=== PATIENT | male | born 1985 | race Caucasian/White ===

== ENCOUNTER 2017-01-01 20:37 | Inpatient (IN) | payer SELFPAY ==
[~2017-01-01 20:37] MED LIST: [UNRECOGNIZED DRUG - OTHER] IV ONE
[2017-01-01] MEDS ORDERED: [UNRECOGNIZED DRUG - OTHER] ONE (20:46)
[2017-01-01] MEDS ORDERED: NS 250 ML IV 250 ML IV ONE (20:47)
[2017-01-01] MEDS ORDERED: NS 1000 ML 1,000 ML ONE (20:51)
[2017-01-01] MEDS ORDERED: DILAUDID INJ ONE ×2 (20:54→21:02)
[2017-01-01] MEDS ORDERED: ADACEL TDaP IM ONE (21:06)
[2017-01-01] MEDS ORDERED: DILAUDID INJ IVP ONE ×2 (21:08→21:17)
[2017-01-01] MEDS ORDERED: [UNRECOGNIZED DRUG - OTHER] IV ONE ×2 (21:10→22:00)
[2017-01-01] MEDS ORDERED: MORPHINE SULFATE INJ 2 MG ONE (21:11)
[2017-01-01] MEDS ORDERED: MORPHINE SULFATE INJ 2 MG IVP ONE (21:17)
[2017-01-01] MEDS ORDERED: NS 1000 ML 1,000 ML IV ONE (21:19)
--- NOTE | 2017-01-01 21:22 | DR.GENAD ---
HPI - PCP Primary Care Physician: NLD - Complaint/Symptoms Chief Complaint Doctors Comments: Patient states he was bitten by a snake when he was walking around his house around his shed he felt the bite and saw something brown moving fast. He has pain in his right foot and 5th toe with swelling and bruising noted. states the pain is severe 10 of 10. He has a dry mouth with a funny taste in his mouth. He denies SOB, chest pain , nausea or vomiting. He has been shaking because the pain hurts so badily. Chief Complaint:: Patient stated that he got bit by a rattlesnake approx. 30 minutes prior to arrival in ER. - Nurses notes reviewed Nurses Notes Review: Yes - Source History Provided: Patient - Mode of Arrival Mode of Arrival: Ambulatory - Timing Onset of Chief Complaint: 01/01/17 Came on: Suddenly - Duration Duration: Constant How lon Duration: Minutes - Location Location: right foot and little toe - Severity Severity: Severe - Modifying Factors Worsens:: movement Improves:: nothing PMH - PMH Past Medical History: Yes Past Medical History Comment: Alcoholism, Drug Addiction Past Surgical History: Yes Surgical History: Ortho Surgery Past Surgical History Comment: Reconstruction surgery on left knee - Family History History of Family Medical Conditions: Yes Family Medical History: Diabetes Mellitus, Coronary Artery Disease, Hypertension - Social History Alcohol Use: Heavy, DAILY Do you use any recreational Drugs:: Yes ([facility]) Lives With: Family Lives Where: Home - infectious screening In the last 2 months have you had wt loss of >10#?: NO Have you had fever, night sweats or hemotysis?: No Have you traveled outside the country in the last 6 months?: No Isolation: Standard ROS - Review of Systems Constitutional: No Symptoms Reported. negative: See HPI, Chills, Diaphoresis, Fever, Malaise, Weakness, Irritable, Fatigue, Loss of Appetite, Other Eyes: No Symptoms Reported. negative: See HPI, Eye Pain, Blurred Vision, Tearing, Discharge, Photophobia, Diplopia, Other ENTM: No Symptoms Reported. negative: See HPI, Ear Pain, Ear Discharge, Pulling on Ears, Hearing Loss, Nose Pain, Nose Discharge, Epistaxis, Nose Congestion, Mouth Pain, Mouth Swelling, Loose Teeth, Drooling, Throat Pain, Throat Swelling, Ear Foreign Body Respiratoy: No Symptoms Reported. negative: See HPI, Productive Cough, Non- Productive Cough, Moist Cough, Dry Cough, Hacking Cough, Barking Cough, Brassy Cough, Orthopnea, Short of Breath, Stridor, Wheezing, Hemoptysis, Other Cardiovascular: No Symptoms Reported. negative: See HPI, Chest Pain, Edema, Palpitations, Syncope, Cyanosis, Skin Mottling, Other Gastrointestinal/Abdominal: No Symptoms Reported. negative: See HPI, Abdominal Pain, Constipation, Diarrhea, Nausea, Vomiting, Food Intolerance, Other Genitourinary: No Symptoms Reported. negative: See HPI, Discharge, Dysuria, Frequency, Hematuria, Pain, Bleeding, Other Neurological: No Symptoms Reported, Paresthesia (right foot), Problems Walking ( right foot pain) Musculoskeletal: No Symptoms Reported, Right (right foot swelling dorsal foot and 5th toe with ecchymosis), Foot Integumentary: Change in Color, Wound (right foot with puncture wound 5th toe), Bruises Hematologic/Lymphatic: No Symptoms Reported. negative: See HPI, Anemia, Blood Clots, Easy Bleeding, Easy Bruising, Swollen Glands, Lymphadenopathy, Other Endocrine: No Symptoms Reported. negative: See HPI, Excessive Sweating, Flushing, Intolerance to Cold, Intolerance to Heat, Increased Hunger, Increased Thirst, Increased Urine, Unexplained Weight Gain, Unexplained Weight Loss, Failure to Thrive, Decreased Appetite, Other Psychiatric: No Symptoms Reported PE - Vital Signs Vitals: Pulse Rate 101 Respiratory Rate 24 Blood Pressure 135/80 O2 Sat by Pulse Oximetry 100 - General Limitations: No Limitations General Appearance: Alert, In Distress (moderate distress) - Head Head Exam: Normal Inspection, Atraumatic, Normocephalic - Eyes Eye exam: Normal Appearance, PERRL, EOMI. negative: Scleral Icterus, Conjunctival Injection, Nystagmus, Miosis, Mydrasis, Periorbital Swelling, Periorbital Tenderness, Other - ENT ENT Exam: Normal Exam, Normal Oropharynx, Normal External Ear Exam, Mucous Membranes Moist, TM's Normal Bilaterally External Ear Exam: Normal External Inspection TM/Canal Exam: Bilateral Normal Nose Exam: Normal Nose Exam Mouth Exam: Normal Inspection. negative: Drooling, Trismus, Lip Swelling, Tongue Elevation, Tongue Swelling, Laceration, Other Throat Exam: Normal Inspection. negative: Tonsillar Erythema, Tonsillomegaly, Tonsillar Exudate, R Peritonsillar Mass, L Peritonsillar Mass, Muffled Voice, Other - Neck Neck Exam: Normal Inspection, Full ROM, Trachea Midline. negative: Tenderness, Meningismus, Lymphadenopathy, Thyromegaly, Other - Chest Chest Inspection: Normal Inspection. negative: Symmetric Chest Wall Rise, Tenderness, Rash, Abscess, Other - Respiratory Respiratory Exam: Normal Lung Sounds Bilat. negative: Accessory Muscle Use, Chest Wall Tenderness, Prolonged Expiratory Phase, Respiratory Distress, Stridor , Other Respiratory Exam: Bilateral Clear to Auscultation - Cardiovascular Cardiovascular Exam: Regular Rate, Normal Rhythm, Normal Heart Sounds. negative : Bradycardia, Tachycardia, Irregular Rhythm, Systolic Murmur, Diastolic Murmur , Rubs, Gallop, Clicks, JVD, +S1, +S2, +S3, +S4, Other - Abdominal Exam Abdominal Exam: Normal Inspection, Normal Bowel Sounds, Soft. 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 negative: Tenderness, (R) CVA Tenderness, (L) CVA Tenderness, Muscle Spasm, Paraspinal Tenderness, Vertebral Tenderness, Rashes, (R) Sciatic Notch Tenderness, (L) Sciatic Notch Tendern, (R ) Straight Leg Raise, (L) Straight Leg Raise, Other - Neurologic Neurological Exam: Alert, Oriented X3, CN II-XII Intact, Reflexes Normal. negative: Normal Gait (gait not tested) - Psychiatric Psychiatric Exam: Normal Affect, Normal Mood, Anxious. negative: Depressed, Agitated, Flat Affect, Manic, Homicidal Ideation, Suicidal Ideation, Other - Skin Skin Exam: Warm, Dry, Intact, Normal Color (right foot with ecchymosis, swelling ). negative: Rash, Cyanosis, Diaphoresis, Erythema, Pallor, Mottled, Other Course - Reevaluation 1st: Improved - Consultation Called: 22:16 Call Returned: 22:16 (Dr. Ramirez to admit) - Education/Counseling Education/Counseling: Patient, Family Educated On: Treatment, Diagnosis, Prognosis, Needs for Follow Up ROR - Labs Reviewed Laboratory Results Reviewed?: Yes (all labs and x-ray results reviewed and discussed with patient) Result Diagrams: 01/01/17 21:00 Laboratory: WBC 17.9 X10^3/uL (3.6-10.0) H 01/01/17 21:00 RBC 4.78 X10^6/uL (4.7-6.0) 01/01/17 21:00 Hgb 15.1 g/dL (13.5-18.0) 01/01/17 21:00 Hct 43.2 % (42.0-54.0) 01/01/17 21:00 MCV 90.3 fL (80.0-100.0) 01/01/17 21:00 MCH 31.5 pg (27.0-34.0) 01/01/17 21:00 MCHC 34.9 g/dL (33.0-35.0) 01/01/17 21:00 RDW 13.0 % (11.6-16.5) 01/01/17 21:00 Plt Count 259 X10^3/uL (150.0-450.0) 01/01/17 21:00 MPV 9.8 fL (7.4-11.0) 01/01/17 21:00 Neut % 49.6 % (42.0-75.0) 01/01/17 21:00 Lymph % 39.0 % (21.0-51.0) 01/01/17 21:00 Stone % 7.7 % (0.0-13.0) 01/01/17 21:00 Eos % 2.8 % (0.9-2.9) 01/01/17 21:00 Baso % 0.9 % (0.2-1.0) 01/01/17 21:00 Neut # 8.9 x10^3/uL (2.2-4.8) H 01/01/17 21:00 Lymph # 7.0 X10^3/uL (1.3-2.9) H 01/01/17 21:00 [place] # 1.4 x10^3/uL (0.3-0.8) H 01/01/17 21:00 Eos # 0.5 x10^3/uL (0.0-0.2) H 01/01/17 21:00 Baso # 0.2 X10^3/uL (0.0-0.1) H 01/01/17 21:00 Absolute Nucleated RBC 0.0 /100WBC 01/01/17 21:00 INR Target Range - 01/01/17 21:00 INR 1.05 (0.8-1.3) 01/01/17 21:00 Fibrinogen 223 mg/dL (239-489) L 01/01/17 21:00 - Diagnosis Discharge Problem: Puncture wound of right foot Bite, snake, venomous Qualifiers: Encounter type: initial encounter Injury intent: accidental or unintentional Qualified Code(s): T63.001A - Toxic effect of unspecified snake venom, accidental (unintentional), initial encounter - Discharge Plan Disposition: ADMITTED INPATIENT Condition: Stable - Follow ups/Referrals Follow ups/Referrals: NFD,None [Primary Care Provider] - 3 days - Instructions
[2017-01-01] MEDS ORDERED: ATIVAN INJ 2 MG VIAL ONE (21:27)
[2017-01-01] MEDS ORDERED: ATIVAN INJ 2 MG VIAL IVP ONE (21:27)
[2017-01-01 21:35] LABS: BASOPHILS # (AUTO) 0.2 X10^3/uL (0.0-0.1); BASOPHILS % (AUTO) 0.9 % (0.2-1.0); EOSINOPHILS # (AUTO) 0.5 x10^3/uL (0.0-0.2); EOSINOPHILS % (AUTO) 2.8 % (0.9-2.9); HEMATOCRIT 43.2 % (42.0-54.0); HEMOGLOBIN 15.1 g/dL (13.5-18.0); MEAN CORPUSCULAR HEMOGLOBIN 31.5 pg (27.0-34.0); MEAN CORPUSCULAR HGB CONC 34.9 g/dL (33.0-35.0); MEAN CORPUSCULAR VOLUME 90.3 fL (80.0-100.0); MEAN PLATELET VOLUME 9.8 fL (7.4-11.0); MONOCYTES # (AUTO) 1.4 x10^3/uL (0.3-0.8); MONOCYTES % (AUTO) 7.7 % (0.0-13.0); NEUTROPHILS # (AUTO) 8.9 x10^3/uL (2.2-4.8); NEUTROPHILS % (AUTO) 49.6 % (42.0-75.0); PLATELET COUNT 259 X10^3/uL (150.0-450.0); RED BLOOD COUNT 4.78 X10^6/uL (4.7-6.0); WHITE BLOOD COUNT 17.9 X10^3/uL (3.6-10.0)
[2017-01-01 22:26] LABS: BLOOD UREA NITROGEN 7 mg/dL (7-18); CALCIUM 9.5 mg/dL (8.5-10.1); CARBON DIOXIDE 22.5 mmol/L (21-32); CHLORIDE 104 mmol/L (98-107); COR NA(FOR HYPERGLY) 141 mmol/L (136-145); CREATININE 1.09 mg/dL (0.70-1.30); GLUCOSE 117 mg/dL (65-99); SODIUM 141 mmol/L (136-145); eGFR BLACK RACES > 60 (>60); eGFR NON BLACK RACES > 60 (>60)
[2017-01-01] MEDS ORDERED: ZOFRAN INJ 4 MG VIAL IVP PRN (22:27)
[2017-01-01 22:35] LABS: ALANINE AMINOTRANSFERASE 30 Units/L (12-78); ALBUMIN 4.2 g/dL (3.4-5.0); ALKALINE PHOSPHATASE 72 Units/L (46-116); ASPARTATE AMINO TRANSFERASE 21 Units/L (15-37); CKMB % 0.6 % (<4); CREATINE KINASE 168 Units/L (39-308); TOTAL PROTEIN 7.7 g/dL (6.4-8.2); TROPONIN I < 0.02 ng/mL (0-1.5)
[2017-01-01 22:52] LABS: D DIMER < 100 ng/mL (0-400)
[2017-01-01] MEDS: MORPHINE SULFATE INJ 2 MG IVP PRN (23:09)
[2017-01-01] MEDS ORDERED: ATIVAN INJ 2 MG VIAL IVP STA (23:29)
[2017-01-01 23:56] VITALS: BMI 25.7
[2017-01-02 01:36] LABS: BASOPHILS # (AUTO) 0.1 X10^3/uL (0.0-0.1); BASOPHILS % (AUTO) 0.4 % (0.2-1.0); EOSINOPHILS # (AUTO) 0.1 x10^3/uL (0.0-0.2); EOSINOPHILS % (AUTO) 0.3 % (0.9-2.9); HEMATOCRIT 38.5 % (42.0-54.0); HEMOGLOBIN 13.3 g/dL (13.5-18.0); LYMPHOCYTES # (AUTO) 2.9 X10^3/uL (1.3-2.9); LYMPHOCYTES % (AUTO) 15.7 % (21.0-51.0); MEAN CORPUSCULAR HEMOGLOBIN 31.3 pg (27.0-34.0); MEAN CORPUSCULAR HGB CONC 34.7 g/dL (33.0-35.0); MEAN CORPUSCULAR VOLUME 90.4 fL (80.0-100.0); MEAN PLATELET VOLUME 9.5 fL (7.4-11.0); MONOCYTES # (AUTO) 1.3 x10^3/uL (0.3-0.8); NEUTROPHILS % (AUTO) 76.6 % (42.0-75.0); PLATELET COUNT 195 X10^3/uL (150.0-450.0); RED BLOOD COUNT 4.26 X10^6/uL (4.7-6.0); RED CELL DISTRIBUTION WIDTH 12.9 % (11.6-16.5); WHITE BLOOD COUNT 18.3 X10^3/uL (3.6-10.0)
[2017-01-02 03:41] LABS: BILIRUBIN,URINE NEGATIVE (NEGATIVE); BLOOD/HEMOGLOBIN,URINE 1+ (NEGATIVE); GLUCOSE, URINE 1+ (NEGATIVE); KETONES,URINE NEGATIVE (NEGATIVE); LEUKOCYTE ESTERASE ,URINE NEGATIVE (NEGATIVE); NITRITES,URINE NEGATIVE (NEGATIVE); PROTEIN,URINE 2+ (NEGATIVE); UROBILINOGEN,URINE NORMAL (NORMAL)
[2017-01-02] MEDS: MORPHINE SULFATE INJ 2 MG IVP PRN ×4 (03:43→20:09)
[2017-01-02 03:51] LABS: APPEARANCE,URINE CLEAR (CLEAR); BACTERIA,URINE TRACE /HPF (NEGATIVE); COLOR,URINE YELLOW (YELLOW); RBC,URINE 0-3 /HPF (NEGATIVE); SQUAMOUS EPITHELIAL CELL,UR RARE /HPF (NEGATIVE)
[2017-01-02] MEDS ORDERED: [UNRECOGNIZED DRUG - OTHER] IV ONE (04:00)
[2017-01-02] MEDS ORDERED: NS 1000 ML 1,000 ML ONE (05:09)
[2017-01-02] MEDS: ZOSYN VIAL 4.5 GM 4.5 GM in NS 100 ML IV + SPIKE MINIBAG* 100 ML IV SCH ×3 (11:46→22:15)
[2017-01-02] MEDS: NICODERM PATCH 21 MG/24 HR TD SCH (11:58)
--- NOTE | 2017-01-02 12:46 | DR.H&P ---
H&P - History & Physical for Day of: H&P Date: 01/01/17 - Chief Complaint Chief Complaint: SNAKE BITE - Allergies Allergies/Adverse Reactions: Allergies Allergy/AdvReac Type Severity Reaction Status Date / Time No Known Drug Allergies Allergy Verified 01/01/17 21:59 - History of Present Illness History of Present Illness: IS A 31 YEAR OLD PATIENT WHO PRESENTED TO THE ER WITH COMPLAINTS OF BEING BITTEN BY A SNAKE UNDER HIS SHED APPROXIMATELY 30 MINUTES PRIOR TO ARRIVAL. PATIENT WAS UNABLE TO KILL SNAKE BUT STATED THAT IT WAS BROWN IN COLOR. HE HAD COMPLAINTS OF PAIN TO HIS RIGHT FOOT AND 5TH TOE. COMPLAINTS OF DRY MOUTH WERE ALSO NOTED. PATIENT DENIED ANY SOB, CHEST PAIN, OR NAUSEA. ON EXAMINATION IN ER, BRUISING AND SWELLING WAS NOTED TO RIGHT FOOT. VITALS UPON ARRIVAL TO ER WERE 98.2, 101, 24, 100%, 135/80. POISON CONTROL WAS CONTACTED FOR FURTHER INSTRUCTIONS. LABS WERE WITHIN NORMAL LIMITS WITH EXCEPTION OF WBC 179, FIBRINOGEN 223, GLUCOSE 117. PATIENT WAS GIVEN A BOLUS OF FLUIDS IN ER, MORPHINE AND DILAUDID FOR PAIN, AND ATIVAN FOR ANXIETY. HE WAS GIVEN 2 VIALS OF CROFAB IN ER. WE ADMITTED PATIENT FOR FURTHER EVALUATION AND TREATMENT. WE STARTED ZOSYN AND WILL MANAGE PAIN WITH MORPHINE. WE WILL CONTINUE TO MONITOR SWELLING AND FOLLOW UP WITH PATIENT IN AM. - Past Medical History Past Medical History: denies: Alzheimers, Anemia, Angina, Anxiety, Arthritis, Asthma, Cirrhosis, CHF, COPD, Coronary Artery Disease, CVA, Dementia, Depression , Diabetes, Dialysis, Migraines, Dyslipidemia, GERD, Gout, Headaches, Hypertension, Hyperthyroidism, Hypothyroidism, Kidney Stones, Liver Disease, DC , PUD, Renal Disease, Schizophrenia, Seizures, Sleep Apnea, SVT, Ventricular Tachycardia - Past Surgical History Surgical History: Ortho Surgery Additional Surgical History: LEFT KNEE RECONSTRUCTION - Family History Family Medical History: Diabetes Mellitus, Coronary Artery Disease, Hypertension - Social History Does patient currently use any type of tobacco product: Yes Have you used tobacco products in the last 12 months: Yes Type of Tobacco Use: Cigarettes Alcohol Use: DAILY Drug Use: None - Medications Home Medications: NK 01/01/17 [History Confirmed 01/01/17] - Review of Systems Constitutional: denies: No Symptoms Reported, See HPI, Fever, Chills, Sweats, Weakness, Malaise, Other Eyes: denies: No Symptoms Reported, See HPI, Pain, Vision Change, Conjunctivae Inflammation, Eyelid Inflammation, Redness, Other ENT: denies: No Symptoms Reported, See HPI, Ear Pain, Ear Discharge, Nose Pain, Nose Discharge, Nose Congestion, Mouth Pain, Mouth Swelling, Throat Pain, Throat Swelling, Other Respiratory: denies: No Symptoms Reported, See HPI, Cough, Dry, Shortness of Breath, Hemoptysis, SOB with Excertion, Pleuritic Pain, Sputum, Wheezing, Other Cardiovascular: denies: No Symptoms Reported, Chest Pain, See HPI, Palpitations , Orthopnea, Paroxysmal Noc. Dyspnea, Edema, Light Headedness, Other Gastrointestinal: denies: No Symptoms Reported, See HPI, Nausea, Vomiting, Abdominal Pain, Diarrhea, Constipation, Melena, Hematochezia, Other Genitourinary: denies: No Symptoms Reported, See HPI, Dysuria, Frequency, Incontinence, Hematuria, Retention, Other Musculoskeletal: See HPI, Foot Pain Skin: See HPI, Wound Neurological: No Symptoms Reported. denies: See HPI, Weakness, Numbness, Incoordination, Change in Speech, Confusion, Seizures, Other - Physical Exam Vital Signs: Temperature 98.2 F Pulse Rate [Apical] 80 Pulse Rate [Apical] 77 Respiratory Rate 23 Blood Pressure [Left Arm] 134/70 Blood Pressure [Right Arm] 135/72 O2 Sat by Pulse Oximetry 96 Oriented: Normal Eyes: Normal Ear: Normal Nose: Normal Throat: Normal Cardiovascular: Normal : Normal Auscultation: Bowel Sounds: Normal Palpation: Normal Tenderness: Normal Skin: Wound Musculoskeletal: Right, Foot, Swelling, Tender, Instability Psychiatric: Normal Mood Description: Calm Affect: Normal Speech Pattern: Clear - Assessment/Plan (1) Bite, snake, venomous Qualifiers: Encounter type: initial encounter Injury intent: accidental or unintentional Qualified Code(s): T63.001A - Toxic effect of unspecified snake venom, accidental (unintentional), initial encounter Status: Acute Plan: CROFAB, CHECK LABS, OUTLINE SWELLING, CONTINUE TO MONITOR (2) Puncture wound of right foot Qualifiers: Encounter type: E Status: Acute Plan: ZOSYN, CONTINUE TO MONITOR
--- NOTE | 2017-01-02 12:55 | PCM.PROG ---
Progress Note - Progress Note for Day of Date: 01/02/17 - Subjective Subjective: WAS ADMITTED TO US LAST NIGHT FROM THE ER WITH A SNAKE BITE AND PUNCTURE WOUND TO RIGHT FOOT. ON MORNING ROUNDS, PATIENT IS AWAKE IN BED WITH RIGHT FOOT ELEVATED ON PILLOWS. NO COMPLAINTS VOICED AT THIS TIME. ON EXAMINATION, LUNGS CTA. PATIENT ALERT AND ORIENTED. RIGHT FOOT ELEVATED ON PILLOWS WITH BRUISING AND SWELLING NOTED. PATIENT HAS GOOD RANGE OF MOTION TO FOOT. CAPILLARY REFILL WNL. VITALS THIS AM ARE 98.3, 77, 23, 96, 135/72. LABS REPORT WBC 18.3, HGB 13.3, HCT 38.5. WE WILL CONTINUE TO MONITOR SWELLING AND WILL CONTINUE ZOSYN. RECHECK LABS AND FOLLOW UP WITH PATIENT IN AM. - Past Medical Family Social History Past Med/Fam/Surg Hx: No changes since H&P Allergies: Allergies No Known Drug Allergies Allergy (Verified 01/01/17 21:59) - Review of Systems ROS: No change since H&P - Vital Signs and I&O's Vital Signs: Temperature 98.2 F Pulse Rate [Apical] 80 Pulse Rate [Apical] 77 Respiratory Rate 23 Blood Pressure [Left Arm] 134/70 Blood Pressure [Right Arm] 135/72 O2 Sat by Pulse Oximetry 96 Intake and Output: Intake & Output 12/31/16 01/01/17 01/02/17 01/03/17 11:59 11:59 11:59 11:59 Intake Total 1443 Output Total 500 Balance 943 - Physical Exam Oriented: Normal Eyes: Normal Ear: Normal Nose: Normal Throat: Normal Cardiovascular: Normal : Normal Auscultation: Bowel Sounds: Normal Tenderness: Normal Skin: Tender, Wound, Bruising (PUNCURE WOUND, BRUISING, AND SWELLING TO RIGHT FOOT ) Musculoskeletal: Right, Foot, Swelling, Tender, Instability Psychiatric: Normal Mood Description: Calm Affect: Normal Speech Pattern: Clear - Laboratory and Diagnostics Result Diagrams: 01/02/17 01:26 01/01/17 21:17 Labs: Laboratory WBC 18.3 X10^3/uL (3.6-10.0) H 01/02/17 01:26 RBC 4.26 X10^6/uL (4.7-6.0) L 01/02/17 01:26 Hgb 13.3 g/dL (13.5-18.0) L 01/02/17 01:26 Hct 38.5 % (42.0-54.0) L 01/02/17 01:26 MCV 90.4 fL (80.0-100.0) 01/02/17 01:26 MCH 31.3 pg (27.0-34.0) 01/02/17 01:26 MCHC 34.7 g/dL (33.0-35.0) 01/02/17 01:26 RDW 12.9 % (11.6-16.5) 01/02/17 01:26 Plt Count 195 X10^3/uL (150.0-450.0) 01/02/17 01:26 MPV 9.5 fL (7.4-11.0) 01/02/17 01:26 Neut % 76.6 % (42.0-75.0) H 01/02/17 01:26 Lymph % 15.7 % (21.0-51.0) L 01/02/17 01:26 [place] % 7.0 % (0.0-13.0) 01/02/17 01:26 Eos % 0.3 % (0.9-2.9) L 01/02/17 01:26 Baso % 0.4 % (0.2-1.0) 01/02/17 01:26 Neut # 14.0 x10^3/uL (2.2-4.8) H 01/02/17 01:26 Lymph # 2.9 X10^3/uL (1.3-2.9) 01/02/17 01:26 [place] # 1.3 x10^3/uL (0.3-0.8) H 01/02/17 01:26 Eos # 0.1 x10^3/uL (0.0-0.2) 01/02/17 01:26 Baso # 0.1 X10^3/uL (0.0-0.1) 01/02/17 01:26 Absolute Nucleated RBC 0.0 /100WBC 01/02/17 01:26 INR Target Range - 01/01/17 21:00 INR 1.05 (0.8-1.3) 01/01/17 21:00 PTT 27.2 SECONDS (22.9-36.5) 01/02/17 01:26 PTT Comment - 01/02/17 01:26 Fibrinogen 223 mg/dL (239-489) L 01/01/17 21:00 D-Dimer < 100 ng/mL (0-400) 01/01/17 21:17 Sodium 141 mmol/L (136-145) 01/01/17 21:17 Corrected Sodium 141 mmol/L (136-145) 01/01/17 21:17 Potassium 3.7 mmol/L (3.5-5.1) 01/01/17 21:17 Chloride 104 mmol/L (98-107) 01/01/17 21:17 Carbon Dioxide 22.5 mmol/L (21-32) 01/01/17 21:17 BUN 7 mg/dL (7-18) 01/01/17 21:17 Creatinine 1.09 mg/dL (0.70-1.30) 01/01/17 21:17 Est GFR (MDRD) Af Amer > 60 (>60) 01/01/17 21:17 Est GFR (MDRD) Non-Af > 60 (>60) 01/01/17 21:17 Glucose 117 mg/dL (65-99) H 01/01/17 21:17 Calcium 9.5 mg/dL (8.5-10.1) 01/01/17 21:17 Total Bilirubin 0.30 mg/dL (0.2-1.0) 01/01/17 21:00 Direct Bilirubin 0.10 mg/dL (0-0.2) 01/01/17 21:00 Indirect Bilirubin 0.20 mg/dL (0.2-0.8) 01/01/17 21:00 AST 21 Units/L (15-37) 01/01/17 21:00 ALT 30 Units/L (12-78) 01/01/17 21:00 Alkaline Phosphatase 72 Units/L (46-116) 01/01/17 21:00 Creatine Kinase 168 Units/L (39-308) 01/01/17 21:00 CK-MB (CK-2) 1.0 ng/mL (0-4.0) 01/01/17 21:00 CK/CKMB % Calc 0.6 % (<4) 01/01/17 21:00 Troponin I < 0.02 ng/mL (0-1.5) 01/01/17 21:00 Total Protein 7.7 g/dL (6.4-8.2) 01/01/17 21:00 Albumin 4.2 g/dL (3.4-5.0) 01/01/17 21:00 Globulin 3.5 g/dL (2.5-4.5) 01/01/17 21:00 Albumin/Globulin Ratio 1.2 Ratio (1.1-2.1) 01/01/17 21:00 Specimen Type Clean catch urine 01/02/17 03:29 Urine Color Yellow (YELLOW) 01/02/17 03:29 Urine Appearance Clear (CLEAR) 01/02/17 03:29 Urine pH 6.0 (5.0 - 8.0) 01/02/17 03:29 Ur Specific [place] 1.030 (1.000-1.030) 01/02/17 03:29 Urine Protein 2+ (NEGATIVE) 01/02/17 03:29 Urine Glucose (UA) 1+ (NEGATIVE) 01/02/17 03:29 Urine Ketones Negative (NEGATIVE) 01/02/17 03:29 Urine Occult Blood 1+ (NEGATIVE) 01/02/17 03:29 Urine Nitrite Negative (NEGATIVE) 01/02/17 03:29 Urine Bilirubin Negative (NEGATIVE) 01/02/17 03:29 Urine Urobilinogen Normal (NORMAL) 01/02/17 03:29 Ur Leukocyte Esterase Negative (NEGATIVE) 01/02/17 03:29 Urine RBC 0-3 /HPF (NEGATIVE) 01/02/17 03:29 Urine WBC 0-1 /HPF (NEGATIVE) 01/02/17 03:29 Ur Squamous Epith Cells Rare /HPF (NEGATIVE) 01/02/17 03:29 Urine Bacteria Trace /HPF (NEGATIVE) 01/02/17 03:29 Ur Culture Indicated? No/not indicated 01/02/17 03:29 Urine Opiates Screen Positive (NEG=<300) 01/02/17 03:29 Urine Methadone Screen Negative (NEG=<300) 01/02/17 03:29 Ur Barbiturates Screen Negative (NEG=<200) 01/02/17 03:29 Ur Phencyclidine Scrn Negative (NEG=<25) 01/02/17 03:29 Ur Amphetamines Screen Negative (NEG=<1000) 01/02/17 03:29 U Benzodiazepines Scrn Negative (NEG=<200) 01/02/17 03:29 Urine Cocaine Screen Negative (NEG=<300) 01/02/17 03:29 U Marijuana (THC) Screen Positive (NEG=<50) A 01/02/17 03:29 Blood Type A POSITIVE 01/01/17 21:00 Antibody Screen Negative 01/01/17 21:00 - Plan (1) Bite, snake, venomous Status: Acute Qualifiers: Encounter type: initial encounter Injury intent: accidental or unintentional Qualified Code(s): T63.001A - Toxic effect of unspecified snake venom, accidental (unintentional), initial encounter Plan: CROFAB, CHECK LABS, OUTLINE SWELLING, CONTINUE TO MONITOR (2) Puncture wound of right foot Status: Acute Qualifiers: Encounter type: E Plan: ZOSYN, CONTINUE TO MONITOR
[2017-01-02] MEDS: CHECK PATCH XX SCH (20:10)
[2017-01-03] MEDS: MORPHINE SULFATE INJ 2 MG IVP PRN ×2 (00:24→08:03)
[2017-01-03 04:28] LABS: BASOPHILS # (AUTO) 0.1 X10^3/uL (0.0-0.1); BASOPHILS % (AUTO) 0.8 % (0.2-1.0); EOSINOPHILS # (AUTO) 0.6 x10^3/uL (0.0-0.2); EOSINOPHILS % (AUTO) 4.7 % (0.9-2.9); HEMATOCRIT 41.5 % (42.0-54.0); HEMOGLOBIN 14.1 g/dL (13.5-18.0); LYMPHOCYTES # (AUTO) 4.6 X10^3/uL (1.3-2.9); LYMPHOCYTES % (AUTO) 37.6 % (21.0-51.0); MEAN CORPUSCULAR VOLUME 91.3 fL (80.0-100.0); MEAN PLATELET VOLUME 9.3 fL (7.4-11.0); MONOCYTES # (AUTO) 1.2 x10^3/uL (0.3-0.8); NEUTROPHILS # (AUTO) 5.8 x10^3/uL (2.2-4.8); NEUTROPHILS % (AUTO) 46.9 % (42.0-75.0); PLATELET COUNT 195 X10^3/uL (150.0-450.0); RED BLOOD COUNT 4.54 X10^6/uL (4.7-6.0); RED CELL DISTRIBUTION WIDTH 12.8 % (11.6-16.5); WHITE BLOOD COUNT 12.3 X10^3/uL (3.6-10.0)
[2017-01-03 04:35] LABS: ALANINE AMINOTRANSFERASE 20 Units/L (12-78); ALBUMIN 2.8 g/dL (3.4-5.0); ALKALINE PHOSPHATASE 52 Units/L (46-116); ASPARTATE AMINO TRANSFERASE 12 Units/L (15-37); BLOOD UREA NITROGEN 7 mg/dL (7-18); CARBON DIOXIDE 27.1 mmol/L (21-32); CHLORIDE 110 mmol/L (98-107); CREATININE 0.97 mg/dL (0.70-1.30); GLUCOSE 106 mg/dL (65-99); SODIUM 142 mmol/L (136-145); TOTAL PROTEIN 5.9 g/dL (6.4-8.2); eGFR BLACK RACES > 60 (>60); eGFR NON BLACK RACES > 60 (>60)
[2017-01-03] MEDS: ZOSYN VIAL 4.5 GM 4.5 GM in NS 100 ML IV + SPIKE MINIBAG* 100 ML IV SCH (05:42)
[2017-01-03] MEDS: NICODERM PATCH 21 MG/24 HR TD SCH (09:35)
[2017-01-03] MEDS: CHECK PATCH XX SCH (09:35)
[2017-01-03 10:10] VITALS: BP 126/79
== END 2017-01-03 10:00 | disposition home or self-care (01) | DRG 918 ==
LOC: ER 20:44 → ICU 22:17
PROVIDERS: ADMIT Internal Medicine; ATTEND Internal Medicine
PROC: 3E0234Z Introduction of Serum, Toxoid and Vaccine into Muscle, Percutaneous Approach (ICD-10-PCS; principal; 2017-01-01)
DX: T63.091A Toxic effect of venom of other snake, accidental (unintentional), initial encounter (principal); Y92.096 Garden or yard of other non-institutional residence as the place of occurrence of the external cause; S91.331A Puncture wound without foreign body, right foot, initial encounter; Z23 Encounter for immunization; F12.90 Cannabis use, unspecified, uncomplicated
CPT/HCPCS: 36415; 80048; 80053; 80076; 80307; 81001; 82550; 82553; 84484; 85025; 85378; 85384; 85610; 85730; 86850; 86900; 86901; 90471; 96365; 96374; 96375; 99284; 99285; A4216; A4222; G0434; J2060; J2270; J2543